=== PATIENT | female | born 1990 | race Caucasian/White ===

== ENCOUNTER 2025-04-16 07:52 | Emergency (ER) | payer OTHER, SELFPAY ==
[2025-04-16 07:53] VITALS: BP 142/93
[2025-04-16 08:06] VITALS: BMI 30.9
--- NOTE | 2025-04-16 08:24 | ED.GENMED ---
History of Present Illness
General
Chief Complaint: Abdominal Pain
Source: patient
Exam Limitations: none
Time Seen by Provider: 04/16/25 08:04
Nursing documentation reviewed up to this point in time: agreed with
History of Present Illness
History of Present Illness:
34-year-old female past medical history of hypothyroidism previous hypertriglyceridemia presenting to the emergency department today with concerns of upper abdominal pain starting a few days ago but specifically worsening since last night.
Associated nausea. Tried taking it without relief. Currently taking Wegovy has lost a large amount of weight over the past 2 years. Denies any changes in bowel movements, chest pain or shortness of breath.
Review of Systems
Review of Systems
Allergies reviewed?: Yes
All Other Systems: ROS reviewed and negative except as documented in HPI and ROS
Phy Exam
Physical Exam
Physical Exam:
GENERAL: Alert , in no apparent distress
EYE: pupils equal and reactive
NECK: Supple, no significant adenopathy.
ENT: o/p clr, mmm.
CARDIAC: Regular rate and rhythm .
LUNGS: Clear breath sounds bilaterally, no acute respiratory distress, no wheezes/rales/rhonchi
ABDOMEN: Upper quadrant abdominal pain positive Jovel's, epigastric pain otherwise soft abdomen no r/g, no cvat
NEUROLOGICAL: Alert and oriented, no focal neuro deficits
SKIN: Warm and dry, skin intact.
MUSCULOSKELETAL: No edema, well perfused.
PSYCH: Normal and appropriate interaction.
Course
Orders/Labs/Results
Orders:
Orders
04/16/25 08:17
Test Result ONCE
04/16/25 08:18
CMP [Comprehensive Metabolic Panel] Urgent
Complete Blood Count/With Diff Urgent
Lipase Urgent
, Serum Qualitative Screen [HCG, Serum Qualitative Screen] Urgent
04/16/25 08:23
Ketorolac [Toradol] 15 mg IV NOW STA
US Abdomen Complete/Upper Urgent
Comment:
Reason For Exam: RUQ pain
Abnormal Lab Results
04/16/25
08:18
WBC 12.5 H 10^3/uL
(4.8-10.8)
RBC 4.19 L 10^6/uL
(4.20-5.40)
MCHC 32.8 L g/dL
(33.0-37.0)
Plt Count 406 H 10^3/uL
(130-400)
Absolute Neuts (auto) 8.5 H 10^3/uL
(1.4-6.5)
Absolute Monos (auto) 0.8 H 10^3/uL
(0.1-0.6)
Chloride 110 H mmol/L
(98-107)
Carbon Dioxide 19 L mmol/L
(22-30)
04/16/25 08:18
04/16/25 08:18
Vital Signs
Initial and Last Documented VS:
Initial Vital Signs
Temp Pulse Resp BP Pulse Ox
98.7 F 88 16 142/93 96
04/16/25 07:53 04/16/25 07:53 04/16/25 07:53 04/16/25 07:53 04/16/25 07:53
Last Documented Vital Signs
Temp Pulse Resp BP Pulse Ox
98.7 F 88 16 112/102 99
04/16/25 07:53 04/16/25 07:53 04/16/25 07:53 04/16/25 09:00 04/16/25 09:30
MDM/Problems Addressed
MDM/Problems Addressed:
34-year-old female presenting to the emergency department today with concerns of right upper and epigastric abdominal pain over the past few days worsening since last night associated nausea. Patient does have reproducible pain to the right upper
quadrant and epigastrium. Plan for ultrasound and labs for further assessment.
Ultrasound showing significant Yolande lithiasis without evidence of cholecystitis. Patient symptoms significantly improved after receiving Toradol. Labs unremarkable bilirubin level normal liver function test as well as alk phos. At this point
results were discussed with the patient. She would like to follow-up with general surgery as an outpatient but otherwise no signs of emergent process at this time. Return precautions given.
*Pulse Oximetry
SaO2: 96
Oxygen Mode of Delivery: Room air
Patient hypoxic: no (99)
*Critical Care Note
Total Time (30-74mins, 75-104mins- exclusive of procedures): Not Applicable
ED Attending Note
-
Portions of this chart may have been created with voice recognition software.� Occasional wrong word or��sound alike� substitutions may have occurred due to the inherent limitations of voice recognition software.
Discharge Plan
Departure
Patient Disposition: Home (Routine Discharge)
Date of Disposition: 04/16/25
Time of Disposition: 11:11
Patient with high blood pressure during this ER visit?: No
Condition: Good
Covid-19: Not Applicable
Discharge Problem:
Cholelithiasis
Instructions: Gallstones (DC)
Referrals:
Ebonie Hanley MD [Family Provider, Family Practice]
Andrade Delgado MD [Active, Surgical] - Follow up in 5-7 days
Activity Restrictions/Additional Instructions:
You came to the emergency department today with concerns of abdominal pain. You are found to have gallstones but no evidence of significant inflammation at this time. Please follow closely with the surgeon. Return for any worsening, new or
concerning symptoms.
Interventions
Interventions:
*Risk Screen - Suicide Last Done: 04/16/25 07:53
*General Assessment Last Done: 04/16/25 08:06
*Neglect/Abuse Screening Last Done: 04/16/25 08:06
*ED- Fall Risk Assessment Last Done: 04/16/25 08:06
*ED COVID-19 Vaccine History Last Done: 04/16/25 08:06
MC-Hgnjdf-Xtfejulprt Assessment Last Done: 04/16/25 08:06
Discharge Date and Time
Print Language: MONTENEGRIN
[2025-04-16 08:26] LABS: Hematocrit 37.2 % (37.0-47.0); Hemoglobin 12.2 g/dL (12.0-16.0); Mean Corp Hgb Conc. 32.8 g/dL (33.0-37.0); Mean Corpuscular Volume 88.8 fL (81.0-99.0); Nucleated Red Blood Cells % 0 %; Platelet Count 406 10^3/uL (130-400); Red Cell Dist. Width 12.8 % (11.5-14.5)
[2025-04-16] MEDS: TORADOL 15 MG IV (08:37)
[2025-04-16 08:41] VITALS: BP 133/92
[2025-04-16 08:42] LABS: HCG, Serum Qualitative Screen Negative
[2025-04-16 09:00] VITALS: BP 112/102
[2025-04-16 09:16] LABS: ALT (SGPT) 19 U/L (0-35); AST (SGOT) 25 U/L (14-36); Albumin 4.8 g/dl (3.5-5.0); Alkaline Phosphatase 42 U/L (38-126); Blood Urea Nitrogen 13 mg/dl (7-17); Calcium 10.0 mg/dl (8.4-10.2); Carbon Dioxide 19 mmol/L (22-30); Chloride 110 mmol/L (98-107); Estimated Creatinine Clearance > 125 ml/min; Glucose 96 mg/dl (70-99); Lipase 57 U/L (23-300); Potassium 4.3 mmol/L (3.5-5.1); Sodium 138 mmol/L (135-145); Total Protein 7.7 g/dl (6.3-8.2); eGFR > 60.00
== END 2025-04-16 11:20 | disposition home or self-care (01) ==
LOC: EMR 07:52
PROVIDERS: Physician Assistant; EMERGENCY PHYSICIAN Student in an Organized Health Care Education/Training Program; FAMILY PHYSICIAN Family Medicine
DX: K80.20 Calculus of gallbladder without cholecystitis without obstruction (principal); E03.9 Hypothyroidism, unspecified; E78.1 Pure hyperglyceridemia
CPT/HCPCS: 96374; 99284; 76700; 80053; 83690; 84703; 85025

== ENCOUNTER 2025-07-29 06:18 | Day surgery (SDC) | payer OTHER, SELFPAY ==
[2025-07-29] VITALS (11 sets, daily range): BP systolic 123–135; BP diastolic 74–91; BMI 31.1
[2025-07-29] MEDS: NORMOSOL-R/PLASMALYTE-A 1000 IV (10:43)
[2025-07-29] MEDS: TYLENOL 1000 MG PO (10:43)
[2025-07-29] MEDS: TRANSDERM-SCOP 1 PATCH TRANSDERM (10:44)
--- NOTE | 2025-07-29 10:57 | HP.FOC2 ---
Focused History & Physical
Chief Complaint
HPI:
Chief Complaint: Symptomatic cholelithiasis
HPI / Indication for Planned Procedure: Patient is a 34-year-old female with approximately a 5-year history of experiencing intermittent upper abdominal abdominal pain rating to the central back and left scapular region. She had previously
associated this with heartburn and indigestion for which she has been on Prilosec. She had a more severe episode this past April prompting emergency department evaluation identifying numerous gallstones. Her symptoms are typically triggered by
fatty foods. She presents today for scheduled cholecystectomy
Relevant Past Medical History: Other (Hyperlipidemia, migraines, hypothyroidism, depression/anxiety, history of obesity -90 to 100 pound weight loss on GLP-1)
Relevant Social History: Negative
Relevant Family History: Negative
Relevant Past Surgical History: Positive for (Breast biopsy, wisdom teeth extraction)
Review of Systems
Review of Pertinent Systems: All Systems Negative
Medication
See Medication form for detailed medications: Yes
Medication List (including Herbals & OTC):
biotin 2,500 mcg capsule 2,500 mcg PO DAILY 07/24/25
cetirizine 10 mg tablet (Zyrtec) 10 mg PO DAILY 07/24/25
fenofibrate 160 mg tablet 160 mg PO DAILY 07/24/25
ibuprofen 200 mg tablet (Advil) 400 mg PO Q6H PRN pain 07/24/25
levothyroxine 100 mcg tablet 100 mcg PO DAILY 07/24/25
lysine 1,000 mg tablet 1,000 mg PO DAILY 07/24/25
magnesium 250 mg PO DAILY 07/24/25
norethindrone 1 mg-ethinyl estradiol 20 mcg (24)-iron 75 mg (4) tablet (Blisovi 24 Fe) 1 tab PO DAILY 07/24/25
omega 5-lnj-hky-fish oil 1,200 mg (144 mg-216 mg) capsule (Fish Oil) 1 cap PO DAILY 07/24/25
omeprazole magnesium 20 mg tablet,delayed release (Prilosec OTC) 20 mg PO DAILY 07/24/25
propranolol 80 mg tablet 80 mg PO DAILY migraines 07/24/25
rizatriptan 10 mg tablet 10 mg PO PRN PRN migraines 07/24/25
semaglutide (weight loss) 2.4 mg/0.75 mL subcutaneous pen injector (Wegovy) 2.4 mg SC QWEEK 07/24/25
sertraline 100 mg tablet 100 mg PO DAILY 07/24/25
valacyclovir 1 gram tablet 2,000 mg PO DAILY PRN cold sores 07/24/25
Medications Reviewed: Yes
Allergies and Reactions
Patient has Allergies: Yes
Noted Allergies and Reactions:
Allergy/AdvReac Type Severity Reaction Status Date / Time
peanut Allergy Severe Anaphylaxis Verified 07/29/25 10:20
Gadolinium-Containing Allergy Unknown Hives Verified 07/29/25 10:20
Contrast Medi
Pertinent Physical Exam
All Other Systems: Negative
Head/Neck: Normal
Lungs: Normal
Heart: Normal
Abdomen: Normal
Extremities: Normal
Neurological: Normal
Diagnosis / Assessment
34-year-old female with probable chronic calculous cholecystitis presenting today for cholecystectomy
Plan / Procedure
Laparoscopic cholecystectomy with intraoperative cholangiogram
Anesthesia/Sedation to be done by Anesthesia Provider: Yes
--- NOTE | 2025-07-29 11:00 | W.SUR.PREOP ---
Pre-Operative Surgical Note
-
I have examined this patient prior to the performance of the scheduled procedure.
The patient's condition is unchanged from the time of the current History and
Physical and the patient is able to undergo the scheduled procedure.
--- NOTE | 2025-07-29 13:03 | W.IMMPOSTOP ---
Addendum entered and electronically signed by Andrade Delgado MD 07/29/25 13:13:
#[id number]
Original Note:
Surgical Immed Post Op Note
-
Primary Surgeon: Andrade Delgado MD
Assisting Surgeon: Michelle Dunbar NP
Pre-op Diagnosis: Chronic calculous cholecystitis
Post-op Diagnosis: Chronic calculous cholecystitis
Procedure Performed: Laparoscopic cholecystectomy with intraoperative cholangiogram
Anesthesia Type: GETA +0.25% Marcaine
Specimen / Cultures: Gallbladder
Estimated Blood Loss: 8 mL
Complications: None immediate
Operative Findings: Gallbladder filled with stones. Stone impacted at the cystic infundibular junction. Normal intraoperative cholangiogram. Anterior and posterior cystic arteries controlled with clips. Cystic duct with 3 clips proximally.
Gallbladder removed intact and extracted at epigastric 12 mm trocar site.
The assistance of Pretty Dunbar NP was required due to the complexity of the procedure. During the procedure Pretty Dunbar NP assisted with trocar placement, managing the laparoscope for visualization, grasping/retracting gallbladder, and
closure of the surgical incision sites. I was present for the entirety of the operative procedure.
[2025-07-29] MEDS: DILAUDID 0.25 MG IV (13:46)
== END 2025-07-29 15:15 | disposition home or self-care (01) ==
LOC: SDS 06:18
PROVIDERS: ATTENDING PHYSICIAN Surgery
DX: K80.10 Calculus of gallbladder with chronic cholecystitis without obstruction (principal)
CPT/HCPCS: 47563; 74300; 76000; 88304; A4300